=== PATIENT | male | born 1950 | race Caucasian/White ===

== ENCOUNTER 2016-12-28 08:56 | Outpatient (CLI) | payer BC ==
[~2016-12-28] VITALS: Ht 174 cm; Wt 91.4 kg
[2016-12-28] MEDS ORDERED: ASPI-586 PO (09:08)
[2016-12-28] MEDS ORDERED: CHOL100045 PO (09:08)
[2016-12-28] MEDS ORDERED: AMLO5TAB2 PO (09:08)
[2016-12-28] MEDS ORDERED: MELA5TAB19 PO (09:08)
[2016-12-28] MEDS ORDERED: LYSI100014 PO (09:08)
[2016-12-28 09:13] VITALS: BP 138/90
== END 2016-12-28 10:43 | disposition home or self-care (01) ==
LOC: PREOP 08:56
PROVIDERS: ATTEND Orthopaedic Surgery
DX: Z01.818 Encounter for other preprocedural examination (principal); Z11.2 Encounter for screening for other bacterial diseases; G56.01 Carpal tunnel syndrome, right upper limb
CPT/HCPCS: 87081

== ENCOUNTER 2017-01-01 08:48 | Day surgery (SDC) | payer BC ==
[~2017-01-01] VITALS: Ht 174 cm; Wt 91.4 kg
[~2017-01-01 08:48] MED LIST: AMLO5TAB2 PO; ASPI-586 PO; CHOL100045 PO; LYSI100014 PO; MELA5TAB19 PO; NS (IVPB) 50 ML ONE; ceFAZolin 1,000 MG (ANCEF) VIAL ONE
[2017-01-01 09:05] VITALS: BP 128/92
[2017-01-01] MEDS ORDERED: MIDAZOLAM 2 MG/2 ML (VERSED) VIAL ONE ×2 (09:08→10:41)
[2017-01-01] MEDS ORDERED: ceFAZolin 1 GM/NS 50 ML IVPB IV ONE ×2 (09:15)
[2017-01-01] MEDS ORDERED: MIDAZOLAM 2 MG/2 ML (VERSED) VIAL IV ONE (09:15)
[2017-01-01] MEDS: LACTATED RINGERS 1,000 ML IV PRN ×2 (09:19→11:40)
[2017-01-01] MEDS ORDERED: fentaNYL INJECTION 100 MCG/2 ML AMP ONE (10:41)
[2017-01-01] MEDS ORDERED: LACTATED RINGERS 1,000 ML IV ONE ×2 (10:41→11:45)
[2017-01-01] MEDS ORDERED: proPOfol 200 MG/20 ML (DIPRIVAN) VIAL IV ONE (10:41)
[2017-01-01] MEDS ORDERED: LIDOCAINE 1% INJ 20 ML (XYLOCAINE) VIAL ONE (10:55)
[2017-01-01] MEDS ORDERED: BUPIVACAINE 0.5% 30 ML (SENSORCAINE) VIAL ONE (10:55)
[2017-01-01] MEDS ORDERED: HYDROcodone/APAP 7.5 MG/325 MG (LORTAB, LORCET PLUS) TABLET PO PRN (11:00)
--- NOTE | 2017-01-01 11:02 | Progress Note-Pre Operative ---
Pre-Operative Progress Note H&P Reviewed The H&P was reviewed, patient examined and no changes noted. Date H&P Reviewed: January 01, 2017 Time H&P Reviewed: 11:02 Pre-Operative Diagnosis: right carpal tunnel syndrome DEAN ALLEN MD January 01, 2017 11:02
--- NOTE | 2017-01-01 11:03 | Progress Note-Post Operative ---
Post-Operative Progess Note Surgeon (s)/Negotiator Sales (s) Surgeon DEAN ALLEN MD Negotiator Sales: Garret Murillo Pre-Operative Diagnosis right carpal tunnel syndrome Post-Operative Diagnosis right carpal tunnel syndrome Post-Op Procedure Note Date of Procedure: January 01, 2017 Name of Procedure Performed: right carpal tunnel release Description of the Procedure: see operative note Findings of the Procedure see operative note Anesthesia Type MAC plus local Estimated blood loss (mL): minimal Packing: none Specimen(s) collected/removed none DEAN ALLEN MD January 01, 2017 11:03
[2017-01-01] MEDS ORDERED: fentaNYL INJECTION 100 MCG/2 ML AMP IVP PRN (12:00)
[2017-01-01] MEDS ORDERED: ONDANSETRON 4 MG/2 ML (SDV) Z0FRAN IVP PRN (12:00)
[2017-01-01] MEDS ORDERED: HYDR-3816 PO (12:01)
[2017-01-01 12:20] VITALS: BP 140/93
[2017-01-01 12:50] VITALS: BP 129/77
--- NOTE | 2017-01-02 02:42 | OPERATIVE REPORT ---
DATE OF SERVICE: 01/01/2017 PREOPERATIVE DIAGNOSIS: Right carpal tunnel syndrome. POSTOPERATIVE DIAGNOSIS: Right carpal tunnel syndrome. PROCEDURE: Right carpal tunnel release. SURGEON: Jermaine Allen MD BOAT OUTFITTER: ROSEANNA Knox, who assisted throughout the procedure and closed the incision. ANESTHESIA: Monitored anesthesia care plus local by Cody Iyer CRNA. TOURNIQUET TIME: 5 minutes at 250 mmHg. ESTIMATED BLOOD LOSS: Minimal. DRAINS: None. COMPLICATIONS: None. POSTOPERATIVE PLANS: Routine protocol. The patient transported to the recovery room awake and in stable condition. STATEMENT OF MEDICAL NECESSITY: The patient is a 66-year-old [id number]-ojvytyru gentleman with complaints of right hand pain and paresthesias. He had a positive Kati's and carpal tunnel with a positive EMG confirming right carpal tunnel syndrome. He reported functional limitations and because of this the patient elected to proceed with surgical intervention. PROCEDURE: After risks and benefits of the procedure were discussed, and questions were answered and informed consent was signed and placed on the chart, the operative site was confirmed in the preoperative holding area and initialed by the surgeon. The patient was then transported to the operating room and after an adequate level of monitored anesthesia care was obtained under sterile conditions, the incision site was infiltrated with a combination of plain Marcaine and plain lidocaine. The right upper extremity was then prepped and draped in the usual sterile fashion. With the arm elevated, the tourniquet was inflated to 250 mmHg. An incision was made in line with the radial border of the ring finger over the transverse carpal ligament. The underlying soft tissues were carefully dissected. The transverse carpal ligament was identified and opened longitudinally in line with the skin incision. The median nerve was identified and carefully protected throughout the procedure and intact at the conclusion of the procedure. The distal extent was confirmed, fully released with the [place] and then proximally under direct visualization while carefully protecting the median nerve, the transverse carpal ligament was dissected superficially and deep and then opened with the slightly opened scissor edges; this was fully freed with a [place]. The tourniquet was deflated for a total tourniquet time of 5 minutes. Pressure was used for hemostasis. The wound was copiously irrigated. The skin was closed with 4-0 nylon in a running alternating horizontal mattress fashion. A soft dressing and brace were applied and the patient was transported to the recovery room awake and in stable condition. Job ID: [id number] DocumentID: [id number] Dictated Date: 01/01/2017 12:06:23 Tumbler Machine Operator Date: 01/02/2017 02:41:37 Dictated By: JERMAINE ALLEN MD
== END 2017-01-01 12:58 | disposition home or self-care (01) ==
LOC: SDC 08:48
PROVIDERS: ATTEND Orthopaedic Surgery
DX: G56.01 Carpal tunnel syndrome, right upper limb (principal)

== ENCOUNTER 2021-04-03 05:31 | Outpatient (CLI) | payer MEDICARE ==
[~2021-04-03] VITALS: Ht 175.3 cm; Wt 93.1 kg
[~2021-04-03 05:31] MED LIST changes: +AMLO-250 PO; -AMLO5TAB2 PO; +HYDR-34 PO; -NS (IVPB) 50 ML ONE; -ceFAZolin 1,000 MG (ANCEF) VIAL ONE
== END 2021-04-07 12:48 | disposition home or self-care (01) ==
LOC: PREOP 05:31
PROVIDERS: ATTEND Internal Medicine
DX: Z01.818 Encounter for other preprocedural examination (principal)

== ENCOUNTER 2021-04-11 07:01 | Day surgery (SDC) | payer MEDICARE, OTHER ==
--- NOTE | 2021-04-03 06:25 | HISTORY AND PHYSICAL ---
DATE OF SERVICE: COLONOSCOPY PHYSICAL AND PHYSICAL HISTORY OF PRESENT ILLNESS: The patient is a 71-year-old white male seen for followup routine medical problems and due for screening colonoscopy as it has been 10 years since his last procedure, which was unremarkable. He is not aware of any family history for colon cancer, so deemed to be of average risk. Reports that he is still having some intermittent vertigo with head position change but is not keeping him from doing anything, short-lived without nausea or vomiting. He has chronic right knee and right CMC pain with known osteoarthritis but continues to walk on a regular basis and does yoga. He does have some intermittent cramping in the calves and hamstrings at night and had an episode that is improving of right mid back pain, not associated with trauma. At its worst, it was aggravated by movement and aggravated by breathing without shortness of breath or cough. PHYSICAL EXAMINATION: GENERAL: Reveals a white male, appeared to be in no acute distress. VITAL SIGNS: Weight was down several pounds 205.2. Initial blood pressure 120/92, at the end of the interview 118/82. HEENT: Unremarkable. Sclerae nonicteric. Ear canals clear with normal TMs. CHEST: Clear to auscultation. CARDIOVASCULAR: Reveals a regular rate and rhythm without murmur, S3 or S4. EXTREMITIES: Reveal no cyanosis, clubbing or edema. ABDOMEN: Soft, supple without mass, organomegaly or tenderness. ASSESSMENT AND PLAN: 1. The patient is set up for screening colonoscopy on 04/11/2021. Prep instructions with the Suprep kit were given and questions were answered. 2. Mild intermittent benign positional vertigo. Patient reassured. 3. Osteoarthritis predominantly CMC and right knee. Discussed the importance of continued physical activity, portion control and weight loss for this as well as for insulin resistance with one fasting blood sugar over 100, several years ago. Currently under that at 98 due to normal weight loss. Blood tests were reviewed with the patient. I will see him back in 6 months. Job ID: [id number] DocumentID: [id number] Dictated Date: 03/13/2021 17:37:47 Regional Maintenance Manager Date: 03/13/2021 17:53:18 Dictated By: ARASH DELGADO MD [facility]
[2021-04-11] VITALS (7 sets, daily range): BP systolic 108–142; BP diastolic 68–92
[~2021-04-11] VITALS: Ht 175.3 cm; Wt 93.1 kg
[2021-04-11] MEDS ORDERED: LACTATED RINGERS 1,000 ML IV STA (07:02)
[2021-04-11] MEDS ORDERED: LACTATED RINGERS 1,000 ML IV ONE (07:04)
[2021-04-11] MEDS ORDERED: LIDOCAINE JELLY 2% 6 ML SYRINGE MM PRN (07:15)
[2021-04-11] MEDS ORDERED: MIDAZOLAM 2 MG/2 ML (VERSED) VIAL ONE (07:22)
[2021-04-11] MEDS ORDERED: PROPOFOL INJECTION 50 ML IV ONE (07:23)
--- NOTE | 2021-04-11 07:39 | Pre-Op Note & Conscious Sedat ---
Pre-Operative Progress Note H&P Reviewed The H&P was reviewed, patient examined and no changes noted. Date H&P Reviewed: Apr 11, 2021 Time H&P Reviewed: 07:20 Conscious Sedation Pre-Proced ASA Score 2 For ASA 3 and 4: Consider anesthesia and medical clearance. Also, for patients with a history of failed moderate sedation consider anesthesia. Airway Lungs Heart ASA score ASA 1: a normal healthy patient ASA 2: a patient with a mild systemic disease (mid diabetes, controlled hypertension, obesity ASA 3: a patient with a severe systemic disease that limits activity (angina, COPD, prior Myocardial infarction) ASA 4: a patient with an incapacitating disease that is a constant threat to life (CHF, renal failure) ASA 5: a moribund patient not expected to survive 24 hrs. (ruptured aneurysm) ASA 6: a declared brain- patient whose organs are being harvested. For emergent operations, add the letter E after the classification Mallampati Classification Grade 2 Sedation Plan Analgesia, Amnesia, Plan communicated to team members, Discussed options with patient/fam, Discussed risks with patient/fam The patient is an appropriate candidate to undergo the planned procedure, sedation, and anesthesia. The patient immediately re-assessed prior to indication. ARASH DELGADO MD Apr 11, 2021 07:39
--- NOTE | 2021-04-11 08:52 | OPERATIVE REPORT ---
DATE OF SERVICE: COLONOSCOPY SUMMARY I am his primary care provider. INDICATION FOR THE PROCEDURE: Screening. DESCRIPTION OF PROCEDURE: The patient was placed in the left lateral decubitus position. Prior to undergoing colonoscopy, digital rectal evaluation was performed. Anal sphincter tone was normal. Perianal reflexes intact. Prostate is mildly enlarged and anodular on digital inspection. No abnormalities were noted on digital inspection of the anal canal or distal rectal vault. The colonoscope was then inserted into the rectum and under direct visualization advanced to the cecum. The cecum was identified by identification of ileocecal valve and cecal strap. Photographic documentation was obtained. Quality of prep was good. FINDINGS: There was no evidence for internal or external hemorrhoids and the rectum was unremarkable. Moderate number of small to medium size diverticulum were noted in the sigmoid colon without evidence for diverticulitis. The descending colon, splenic flexure, transverse colon, hepatic flexure, ascending colon and cecum were unremarkable. ASSESSMENT: 1. Moderate diverticular disease confined to the sigmoid colon was present without evidence for diverticulitis. 2. Digital evaluation of the prostate was compatible with mild BPH. No evidence for neoplasia was identified on today's procedure. Consideration for repeat screening colonoscopy in 10 years. No reported family history for colon cancer. Job ID: [id number] DocumentID: [id number] Dictated Date: 04/11/2021 08:35:34 Shot Blast Equipment Operator Date: 04/11/2021 08:51:47 Dictated By: ARASH DELGADO MD
--- NOTE | 2021-04-11 11:03 | Anesthesia-General Post-Op ---
MAC Patient Condition Mental Status/LOC: Same as Preop Cardiovascular: Satisfactory Nausea/Vomiting: Absent Respiratory: Satisfactory Pain: Controlled Complications: Absent Post Op Complications Complications None Follow Up Care/Instructions Patient Instructions None needed. Anesthesiology Discharge Order Discharge Order Patient is doing well, no complaints, stable vital signs, no apparent adverse anesthesia problems. No complications reported per nursing. NAMAN MARRUFO CRNA Apr 11, 2021 11:03
== END 2021-04-11 09:06 | disposition home or self-care (01) ==
LOC: ENDO 07:01
PROVIDERS: ATTEND Internal Medicine
DX: Z12.11 Encounter for screening for malignant neoplasm of colon (principal); K57.30 Diverticulosis of large intestine without perforation or abscess without bleeding; N40.0 Benign prostatic hyperplasia without lower urinary tract symptoms; I10 Essential (primary) hypertension; M17.11 Unilateral primary osteoarthritis, right knee; R42 Dizziness and giddiness; Z79.899 Other long term (current) drug therapy

== ENCOUNTER → 2023-05-04 | Outpatient (CLI) | payer MEDICARE, OTHER | LOC: CARD 09:57 | PROVIDERS: ATTEND Internal Medicine | DX: I21.3 ST elevation (STEMI) myocardial infarction of unspecified site (principal) | CPT/HCPCS: 93306 ==